=== PATIENT | female | born 1975 | race Caucasian/White ===

== ENCOUNTER 2017-01-18 12:32 | Emergency (ER) | payer OTHER ==
[~2017-01-18] VITALS: Ht 162.6 cm; Wt 113.4 kg
[2017-01-18 13:25] LABS: UTC STREP SCREEN NOT DETECTED (NOTDETECTED)
[2017-01-18 13:52] VITALS: BP 132/74
[2017-01-18] MEDS ORDERED: TAMIFLU 75MG CA75 MG PO (13:54)
[2017-01-18] MEDS ORDERED: PREDNISONE 20MG20 MG PO (13:54)
--- NOTE | 2017-02-01 09:10 | Urgent Treatment Center Report ---
History of Present Issue Date/Time Seen by Provider 01/18/17 1300 Visit Reason Pt arrived:Walked Presenting Problem:SORE THROAT, PRODUCTIVE COUGH, CHILLS, BODY ACHES, HEADACHE BILATERAL EAR PAIN Location if Accident: Onset of symptoms date/time:/ or onset unknown for:MEDICAL HX UNKNOWN Have you (or family members/close friends) recently traveled outside the [place]? N If Yes, where/when: Have you had exposure to infectious disease within the past month? TB? Other? Specify: Source patient, RN notes reviewed Exam Limitations no limitations Comment Pt has had 2 day history of cough, congestion, fever, bilateral ear pain and sore throat. Has been taking OTC remedies without relief. No vomiting or diarrhea. 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 ALLERGIES Coded Allergies: No Known Allergies (01/18/17) History Medical History General CAD? No Angina: No MA: No Hypertension? Yes Hyperlipidemia? No CHF? No DVT? No PE? No COPD? No Asthma? No Anemia? No GERD? No Gastric ulcers? No GI Bleed? No Hernia? No Thyroid Problems? No Hypothyroidism? No CVA? No Seizures? No Diabetes? No Renal Insuffiency? No UTI? No Stones? No BPH? No GB Disease: No Nephritic Syndrome? No Asplenia? No Hepatitis? No Sickle Cell Disease? No Arthritis? No Migraines? No Cataracts? No Glaucoma? No MRSA? No HIV? No TB? No Anxiety? Yes Depression? No Cancer? No Immunization HX DT/Tetanus 1-4 Years Ago Surgical Hx Previous Surgery?Y X 4 GALLBLADDER Social History Smoking Hx Smoker: Never Smoker Tobacco: No Alcohol Alcohol: No Review of Systems All Other Systems Reviewed and Negative Constitutional fever, malaise ENT nose congestion, throat pain. denies: ear pain. Respiratory cough Physical Exam Vital Signs Vital Signs Date Time Temp Pulse Resp B/P Pulse O2 O2 Flow FiO2 Ox Delivery Rate 01/18 1352 97.5 70 16 132/74 98 01/18 1308 97.5 70 16 132/74 98 General Appearance normal appearance, no apparent distress Ear, Nose, Throat hearing grossly normal, normal ENT inspection Respiratory Status No: respiratory distress, trachea midline, chest symmetrical. Lung Sounds bilateral: normal breath sounds, lungs clear. Cardiovascular normal exam, regular rate/rhythm, no peripheral edema, no gallop, no JVD, no murmur, no rub Extremities non-tender, normal range of motion, normal inspection, normal capillary refill Neurologic alert, normal exam, oriented x 3 Medical Decision Making LABS/Meds/Orders Pt receiving controlled substance in ED? No Results/Orders Laboratory Tests 01/18/17 1248: Influenza Type A Ag DETECTED H, Influenza Type B Ag NOT DETECTED, Group A Strep Screen NOT DETECTED Orders Procedure Date/time Status UTC STREP SCREEN 01/18 1248 Complete UTC FLU A,B 01/18 1248 Complete Departure Departure Time of Disposition 1345 Disposition DC Home or Self Care(routine) Clinical Impression Primary Impression: Influenza due to influenza virus, type A, human Condition STABLE Referrals NILE MORRISON (Family) Patient Instructions DI for Influenza -- Adult Discharge Counseling Counseled pt/family regarding diagnosis, test results, medications/RX, home care Prescriptions Current Visit Scripts Oseltamivir Phosphate (Tamiflu 75MG Capsule) 75 MG PO BID #10 CAP Prednisone (Prednisone 20MG) 20 MG PO BID #10 TAB at 0910
== END 2017-01-18 13:55 | disposition home or self-care (01) ==
LOC: UTC 12:32
PROVIDERS: Emergency Medicine
DX: J10.1 Influenza due to other identified influenza virus with other respiratory manifestations (principal)

== ENCOUNTER 2017-09-01 11:39 | Emergency (ER) | payer OTHER ==
[~2017-09-01] VITALS: Ht 160 cm; Wt 108.9 kg
[~2017-09-01 11:39] MED LIST: PREDNISONE 20MG20 MG PO; TAMIFLU 75MG CA75 MG PO
--- OUTSIDE RECORDS SUMMARY | 2017-09-01 11:43 | External Medical Summary Rpt ---
Author Author [facility] Organization [facility] Address Unknown Phone Unavailable Care Team Providers Care Journeyman Lineman Name Role Phone DENNY NELSON PCP [phone] Encounter [facility] Date(s): 08/23/15 - 08/22/16 [facility] [address] [place] [address]- [phone] Discharge Disposition: OP Self Care or Home Attending Physician: TONY HA DO Admitting Physician: TONY HA DO Referring Physician: TONY HA DO Reason for Visit UNKNOWN Vital Signs No data available for this section Problem List No data available for this section Allergies, Adverse Reactions, Alerts No data available for this section Medications No data available for this section Results No data available for this section Immunizations No data available for this section Procedures No data available for this section Social History No data available for this section Assessment and Plan No data available for this section Hospital Discharge Instructions No data available for this section
--- OUTSIDE RECORDS SUMMARY | 2017-09-01 11:43 | External Medical Summary Rpt ---
Author Author [facility] Organization [facility] Address Unknown Phone Unavailable Care Team Providers Care Bus Company Manager Name Role Phone DENNY NELSON PCP [phone] Encounter [facility] Date(s): 08/23/15 - 08/22/16 [facility] [address] [place] [address]- [phone] Discharge Disposition: OP Self Care or Home [...]
--- OUTSIDE RECORDS SUMMARY | 2017-09-01 11:44 | External Medical Summary Rpt | CCD ---
Author Author , JERALD MAR[employer] Address Unknown Phone Purpose Continuity of Care Document - through 2016
--- OUTSIDE RECORDS SUMMARY | 2017-09-01 11:44 | External Medical Summary Rpt | CCD ---
Author Author [facility] Organization [employer] Address Unknown Phone Unavailable Purpose Continuity of Care Document - through 2016
--- OUTSIDE RECORDS SUMMARY | 2017-09-01 11:45 | External Medical Summary Rpt | CCD ---
Demographics Home Phone Preferred Language Danish Marital Status Unknown Protestant Affiliation Unknown Race Unknown Ethnic Group Unknown Author Author , JERALD MARQUES Address Unknown Phone soniarosa Immunization Name Date Rout CVX Reac Dose Comm Prov Is Faci e tion ent ider Refu lity Give sed n Infl 10-0 150 999 Hist D202 No D202 uenz 5-20 oric 15 15 a 15 al Quad Info Inj rmat ion - Sour ce Unsp ecif ied
--- OUTSIDE RECORDS SUMMARY | 2017-09-01 11:45 | External Medical Summary Rpt | CCD ---
Demographics Home Phone Preferred Language Mongolian Marital Status Unknown Oriental Orthodox Affiliation Unknown Race Unknown Ethnic Group Unknown Author Author , JERALD MARQUES Address Unknown Phone [email or web address] Immunization Name Date Rout CVX Reac Dose Comm Prov Is Faci e tion ent ider Refu lity Give sed n Infl 10-0 150 999 Hist D202 No D202 uenz 5-20 oric 15 15 a 15 al Quad Info Inj rmat ion - Sour ce Unsp ecif ied
--- OUTSIDE RECORDS SUMMARY | 2017-09-01 11:45 | External Medical Summary Rpt ---
Author Author [employer] [employer], JER[employer]D [employer]illo Organization [employer] Address Unknown Phone Unavailable
--- NOTE | 2017-09-01 12:14 | Urgent Treatment Center Report ---
History of Present Issue Date/Time Seen by Provider 09/01/17 1204 Visit Reason Pt arrived:Walked Presenting Problem:PT C/O LEFT EAR PAIN, COUGH, CHEST CONGESTION Location if Accident: Onset of symptoms date/time:/ or onset unknown for:MEDICAL HX UNKNOWN Have you (or family members/close friends) recently traveled outside the [place]? N If Yes, where/when: Have you had exposure to infectious disease within the past month? TB? Other? Specify: Patient state that she has been having left ear pain, cough and congestion State that she has had a nagging cough now for over a month States that it has continued to get worse States that when she coughs she has a pain in the right lung area State that she has continued to feel worse so thought she better come in and get checked out ALLERGIES Coded Allergies: No Known Allergies (01/18/17) History Medical History General CAD? No Angina: No MD: No Hypertension? Yes Hyperlipidemia? No CHF? No DVT? No PE? No COPD? No Asthma? No Anemia? No GERD? No Gastric ulcers? No GI Bleed? No Hernia? No Thyroid Problems? No Hypothyroidism? No CVA? No Seizures? No Diabetes? No Renal Insuffiency? No UTI? No Stones? No BPH? No GB Disease: No Nephritic Syndrome? No Asplenia? No Hepatitis? No Sickle Cell Disease? No Arthritis? No Migraines? No Cataracts? No Glaucoma? No MRSA? No HIV? No TB? No Anxiety? Yes Depression? No Cancer? 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 Respiratory cough, denies shortness of breath, denies wheezing Cardiovascular other (congestion) Physical Exam Vital Signs Vital Signs Date Time Temp Pulse Resp B/P Pulse O2 O2 Flow FiO2 Ox Delivery Rate 09/01 1221 97.8 78 20 157/92 98 09/01 1147 97.8 78 20 157/92 98 General Appearance Patient appears ill sitting in exam chair Ear, Nose, Throat left ear mild redness, tm buldging clear Respiratory Status Yes: trachea midline, chest symmetrical, non tender chest. No: respiratory distress. Lung Sounds bilateral: normal breath sounds, lungs clear. Cardiovascular normal exam, regular rate/rhythm Neurologic alert, normal exam, oriented x 3 Medical Decision Making LABS/Meds/Orders Pt receiving controlled substance in ED? No Results/Orders Orders Procedure Date/time Status CHEST(2 VIEWS-NOT PORTABLE) 09/01 1146 Active XRAY/CT/US XRAY/CT/US XRAY chest XR interpretation by reviewed by me Xray Results no infiltrates Departure Departure Time of Disposition 1223 Disposition DC Home or Self Care(routine) Clinical Impression Primary Impression: Upper respiratory infection Qualifiers: URI type: unspecified URI Qualified Code: J06.9 - Acute upper respiratory infection, unspecified Condition STABLE Referrals NILE MORRISON (Family) Patient Instructions Cough, DI for Cough -- Adult, DI for Ear Pain-Adult, Sinus Headache Additional Instructions * Monitor Temp. Tylenol and/or Ibuprofen as needed. ER if fever is no less than 101 despite alternating Tylenol and Ibuprofen * Encourage fluids, water, Gatorade, powerade, pedialyte if infant/toddler/or child * Warm salt water gargles for throat irritation *Warm fluids *Sore throat lozenges *Sleep elevated *humidifier or vaporizer Lots of rest Increase fluids, water, Gatorade, powerade *Flonase 2 sprays each nostril daily but may take 2-3 days to notice improvement with it Follow up IMMEDIATELY for new or worsening of symptoms OR no noticeable improvement over the next 48-72 hours. 911 immediately for any life threatening symptoms such as chest pain or difficulty breathing Discharge Counseling Counseled pt/family regarding diagnosis, test results, medications/RX, home care, follow up needs Prescriptions Current Visit Scripts Azithromycin (Zithromycin (Z-JOHNATHAN) 250MG Tab) 250 MG PO DAILY #6 TAB TAKE TWO (2) TABLETS ON DAY 1, THEN ONE (1) TABLET DAY #2 THRU #5 Methylprednisolone (Medrol Dose Johnathan) 4 MG PO UD #1 JOHNATHAN TAKE DIRECTED ON PACKAGING Albuterol Sulfate (Proair Hfa) 2 PUFFS IH Q6HP PRN soa #1 INH Ref 1 Benzonatate (Tessalon Perle) 100 MG PO TID #15 SGL at 1229
[2017-09-01 12:21] VITALS: BP 157/92
[2017-09-01] MEDS ORDERED: ZITHROMAX Z PA250 MG PO (12:25)
[2017-09-01] MEDS ORDERED: MEDROL 4MG. DOSE4 MG PO (12:25)
[2017-09-01] MEDS ORDERED: PROAIR HFA0.09 MG/AC IH (12:25)
[2017-09-01] MEDS ORDERED: TESSALON PERLE100 M1 PO (12:25)
--- NOTE | 2017-09-01 14:57 | RADIOLOGY REPORT PS360 ---
CHEST(2 VIEWS-NOT PORTABLE) HISTORY: chest CONGESTION ORDERING PHYSICIAN: TESS MATHEWS APRN PATIENT AGE: 42 years COMPARISON: None available FINDINGS: The cardiomediastinal silhouette and pulmonary vascularity are within normal limits. The lungs are clear without infiltrates, suspicious nodules, or pleural effusions. No acute bony abnormalities. IMPRESSION: Negative chest, no acute finding
== END 2017-09-01 12:29 | disposition home or self-care (01) ==
LOC: UTC 11:39
DX: J06.9 Acute upper respiratory infection, unspecified (principal); I10 Essential (primary) hypertension

== ENCOUNTER 2017-10-18 10:30 | Emergency (ER) | payer OTHER ==
[~2017-10-18] VITALS: Ht 160 cm; Wt 108.9 kg
[~2017-10-18 10:30] MED LIST changes: +MEDROL 4MG. DOSE4 MG PO; +PROAIR HFA0.09 MG/AC IH; +TESSALON PERLE100 M1 PO; +ZITHROMAX Z PA250 MG PO
--- OUTSIDE RECORDS SUMMARY | 2017-10-18 10:34 | External Medical Summary Rpt | CCD ---
Demographics Home Phone Preferred Language Greenlandic Marital Status Unknown Anabaptist Affiliation Unknown Race Unknown Ethnic Group Unknown [...]
--- OUTSIDE RECORDS SUMMARY | 2017-10-18 10:34 | External Medical Summary Rpt | CCD ---
Author Author , JERALD MARQUES Address Unknown Phone [email or web address] Purpose Continuity of Care Document - through 2016
--- OUTSIDE RECORDS SUMMARY | 2017-10-18 10:34 | External Medical Summary Rpt | CCD ---
Demographics Home Phone Preferred Language [place] Citizen Marital Status Unknown Zoroastrian Affiliation Unknown Race Unknown Ethnic Group Unknown [...]
--- OUTSIDE RECORDS SUMMARY | 2017-10-18 10:34 | External Medical Summary Rpt | CCD ---
Author Author , JERALD MARQUES Address Unknown Phone [email or web address] Purpose Continuity of Care Document - through 2016
[2017-10-18] MEDS ORDERED: METOPROLOL SUCC50 M1 PO (10:50)
[2017-10-18] MEDS ORDERED: LISINOPRIL/HCTZ1 TA3 FT (10:51)
[2017-10-18] MEDS ORDERED: MUCINEX1200 MG PO (11:34)
[2017-10-18] MEDS ORDERED: AUGMENTIN 875-1 EACH PO (11:34)
[2017-10-18] MEDS ORDERED: FLONASE 50 MCG16 GM (11:34)
[2017-10-18] MEDS ORDERED: PREDNISONE 20MG20 MG PO (11:34)
--- NOTE | 2017-10-18 11:35 | Urgent Treatment Center Report ---
History of Present Issue Date/Time Seen by Provider 10/18/17 1127 Visit Reason Pt arrived:Walked Presenting Problem:PT C/O SINUS CONGESTION AND HEADACHE. Location if Accident: Onset of symptoms date/time:/ or onset unknown for:MEDICAL HX UNKNOWN Have you (or family members/close friends) recently traveled outside the [place]? N If Yes, where/when: Have you had exposure to infectious disease within the past month? TB? Other? Specify: Patient state that she has been having sinus pain and pressure along with headache. State that it has continued to get worse over the last few days State that she feels the pressure behind her eyes State that she has a history of sinus infections State that she came in to be seen ALLERGIES Coded Allergies: No Known Allergies (01/18/17) Home Medications Reported Medications Metoprolol Succinate Xl (Metoprolol ER 50MG) 50 MG PO DAILY Lisinopril & Hctz (Lisinopril-Hctz 10-12.5 MG Tab) 1 TAB FT DAILY History Medical History General CAD? No Angina: No ME: No Hypertension? Yes Hyperlipidemia? No CHF? No DVT? No PE? No COPD? No Asthma? No Anemia? No GERD? No Gastric ulcers? No GI Bleed? No Hernia? No Thyroid Problems? No Hypothyroidism? No CVA? No Seizures? No Diabetes? No Renal Insuffiency? No UTI? No Stones? No BPH? No GB Disease: No Nephritic Syndrome? No Asplenia? No Hepatitis? No Sickle Cell Disease? No Arthritis? No Migraines? No Cataracts? No Glaucoma? No MRSA? No HIV? No TB? No Anxiety? Yes Depression? No Cancer? 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 Physical Exam Vital Signs Vital Signs Date Time Temp Pulse Resp B/P Pulse O2 O2 Flow FiO2 Ox Delivery Rate 10/18 1048 98.4 83 18 124/79 96 General Appearance normal appearance, WD/WN, no apparent distress Ear, Nose, Throat nasal congestion, Tenderness noted in frontal sinuses, redness noted bilateral turbinates Respiratory Status Yes: trachea midline, chest symmetrical, non tender chest. No: respiratory distress. Lung Sounds bilateral: normal breath sounds, lungs clear. Cardiovascular normal exam, regular rate/rhythm, no peripheral edema Neurologic alert, normal exam, oriented x 3 Medical Decision Making LABS/Meds/Orders Pt receiving controlled substance in ED? No Departure Departure Time of Disposition 1130 Disposition DC Home or Self Care(routine) Clinical Impression Primary Impression: Sinusitis Qualifiers: Sinusitis location: unspecified location Chronicity: acute Recurrence: not specified as recurrent Qualified Code: J01.90 - Acute sinusitis, unspecified Condition STABLE Patient Instructions DI for Sinusitis, Sinus Headache, Sinusitis Additional Instructions Start antibiotic. Sinus infections may take 2-3 days to notice much improvement so be sure to use conservative measures as discussed for symptoms Ok to continue Sudafed Flonase 2 spray in each nostril daily to help with nasal congestion, sinus an ear pressure/inflammation Lots of Fluids Sleep elevated Humidifer/vaporizer Augmentin can cause GI effects. Probiotics may help to prevent these symptoms if you do not wish to take probiotics, eat yogurt at least twice daily will help to prevent GI effects of this medication Discharge Counseling Counseled pt/family regarding diagnosis, medications/RX, home care, follow up needs Prescriptions Current Visit Scripts Amoxicillin/Potassium Clav (Augmentin 875-125 Tablet) 1 EACH PO BID #20 TAB Fluticasone Propionate (Flonase 50 Mcg Nasal [place]) 2 SPRAY NA DAILY #1 BOT Guaifenesin (Mucinex) 1,200 MG PO BID #20 TER Prednisone (Prednisone 20MG) 20 MG PO BID #10 TAB at 1135
[2017-10-18 11:38] VITALS: BP 124/79
== END 2017-10-18 11:43 | disposition home or self-care (01) ==
LOC: UTC 10:30
DX: J01.90 Acute sinusitis, unspecified (principal); R51 Headache